=== PATIENT | male | born 1990 | race Caucasian/White ===

== ENCOUNTER 2017-12-02 11:06 | Emergency (ER) | payer OTHER ==
[2017-12-02 11:12] VITALS: BMI 17.7
--- NOTE | 2017-12-02 11:56 | C.PDOC ---
History Of Present Illness Patient is a 27 y/o male who presents to the ED with a complaint of throat pain since 2 days. Patient admits to subjective fever as well. Denies vomiting, allergies, rash, cough, or chest pain. Patient has no other physical complaints at this time. Time Seen by Provider: 12/02/17 11:23 Chief Complaint (Nursing): ENT Problem History Per: Patient History/Exam Limitations: None Onset/Duration Of Symptoms: Days (since Sunday) Current Symptoms Are (Timing): Still Present Quality (Mouth/Throat): Tenderness, Swelling, Redness Symptoms Have Been: Continuous Anticoagulant/Antiplatlet Use?: No Past Medical History Reviewed: Historical Data, Nursing Documentation, Vital Signs Vital Signs: Last Vital Signs Temp 98.3 F 12/02/17 11:11 Pulse 83 12/02/17 11:11 Resp 18 12/02/17 11:11 BP 125/86 12/02/17 11:11 Pulse Ox 98 12/02/17 12:06 - Medical History PMH: Asthma Surgical History: No Surg Hx Family History: States: No Known Family Hx - Social History Hx Tobacco Use: No Hx Alcohol Use: No Hx Substance Use: No - Immunization History Hx Tetanus Toxoid Vaccination: No Hx Influenza Vaccination: No Hx Pneumococcal Vaccination: No Review Of Systems Except As Marked, All Systems Reviewed And Found Negative. Constitutional: Positive for: Fever (subjective) ENT: Positive for: Throat Pain Cardiovascular: Negative for: Chest Pain Respiratory: Negative for: Cough Gastrointestinal: Negative for: Vomiting Skin: Negative for: Rash Physical Exam - Physical Exam Appears: Non-toxic, No Acute Distress Skin: Normal Color, Warm, No Rash Head: Atraumatic, Normacephalic Eye(s): bilateral: Normal Inspection Ear(s): Bilateral: Normal Nose: Normal Oral Mucosa: Moist Throat: Erythema, Exudate (moderate) Neck: Normal ROM, Supple Lymphatic: Adenopathy (cervical lymphadenopathy; tonsils swollen and erythematous with exudates) Chest: No Tenderness Cardiovascular: Rhythm Regular, No Friction Rub, No Murmur Respiratory: Normal Breath Sounds, No Rales, No Rhonchi, No Wheezing Gastrointestinal/Abdominal: Normal Exam, Soft, No Tenderness Back: Normal Inspection, No CVA Tenderness Extremity: Normal ROM, No Swelling Neurological/Psych: Oriented x3, Normal Speech, Normal Motor Gait: Steady ED Course And Treatment O2 Sat by Pulse Oximetry: 98 (on RA) Pulse Ox Interpretation: Normal Progress Note: Amoxicillin and motrin administered. Patient is resting comfortably and stable for discharge. Disposition - Disposition Referrals: [facility] at [facility] [Outside] Disposition: HOME/ ROUTINE Disposition Time: 12:41 Condition: GOOD Additional Instructions: Follow up with the medical doctor within 1-2 days without fail. Return if worsened. Prescriptions: Amoxicillin/Clavulanate [Augmentin 875 MG-125 MG] 1 tab PO BID #14 tab Ibuprofen [Motrin] 600 mg PO TID #21 tab predniSONE [Prednisone] 10 mg PO BID #10 tab Instructions: Sore Throat, Adult (DC) Forms: [employer] (Khmer), Work Excuse Print Language: TAJIK - Clinical Impression Clinical Impression: Pharyngitis - Scribe Statement The provider has reviewed the documentation as recorded by the Scribe Sherry Love All medical record entries made by the Scribe were at my direction and personally dictated by me. I have reviewed the chart and agree that the record accurately reflects my personal performance of the history, physical exam, medical decision making, and the department course for this patient. I have also personally directed, reviewed, and agree with the discharge instructions and disposition.
[2017-12-02 13:25] VITALS: BP 132/86; PULSE 84; RESP 20; TEMP 98.8; O2SAT 99
== END 2017-12-02 13:25 | disposition home or self-care (01) ==
LOC: C.ER 11:06
DX: J02.9 Acute pharyngitis, unspecified (principal)